=== PATIENT | female | born 1990 | race American Indian/Alaskan Native ===

== ENCOUNTER 2019-09-23 10:54 | Outpatient (CLI) | payer OTHER | END 2019-09-24 10:44 | disposition home or self-care (01) | LOC: OBS/DEL 10:54 | DX: O26.893 Other specified pregnancy related conditions, third trimester (principal); T78.49XA Other allergy, initial encounter ==

== ENCOUNTER 2019-09-29 07:19 | Inpatient (IN) | payer OTHER ==
[~2019-09-29] VITALS: Ht 157.5 cm; Wt 93.4 kg
[2019-09-29] MEDS ORDERED: PRENATAL TABLE1 EAC1 PO (10:13)
[2019-09-29] MEDS ORDERED: BENADRYL25 MG PO (10:14)
== END 2019-10-01 11:30 | disposition home or self-care (01) | DRG 807 ==
LOC: LDR 07:19 → OB/GYN 07:19
PROVIDERS: ADMIT Obstetrics & Gynecology
PROC: 10E0XZZ Delivery of Products of Conception, External Approach (ICD-10-PCS; principal; 2019-09-29)
PROC: 0HQ9XZZ Repair Perineum Skin, External Approach (ICD-10-PCS; 2019-09-29)
PROC: 3E033VJ Introduction of Other Hormone into Peripheral Vein, Percutaneous Approach (ICD-10-PCS; 2019-09-29)
PROC: 10907ZC Drainage of Amniotic Fluid, Therapeutic from Products of Conception, Via Natural or Artificial Opening (ICD-10-PCS; 2019-09-29)
PROC: 4A1HXCZ Monitoring of Products of Conception, Cardiac Rate, External Approach (ICD-10-PCS; 2019-09-29)
DX: O70.0 First degree perineal laceration during delivery (principal); Z37.0 Single live birth; Z3A.39 39 weeks gestation of pregnancy